=== PATIENT | female | born 2000 | race Caucasian/White ===

== ENCOUNTER 2019-03-19 21:59 | Emergency (ER) | payer OTHER ==
[~2019-03-19] VITALS: Ht 162.6 cm; Wt 114.0 kg
[2019-03-19 22:16] VITALS: Ht 162.6 cm; Wt 114.0 kg
[2019-03-20] MEDS ORDERED: NAPR-985 PO (00:14)
[2019-03-20 01:13] VITALS: BP 137/83; PULSE 77; RESP 16
--- NOTE | 2019-03-20 04:50 | ERD ---
ER Documentation Chief Complaint Chief Complaint R shoulder & chest wall pains on/off x 3 days HPI 18-year-old female presenting to the emergency department complaining of pain to the right scapular region with radiation to the right chest for the past 3 days. Pain is completely resolved at this time. Pain is sharp and intermittent. Pain is rated moderate in severity. She took [id number] medication with some relief. She denies any shortness of breath, abdominal pain, nausea, vomiting, diarrhea, or other symptoms at this time. ROS All systems reviewed and are negative except as per history of present illness. Medications Home Meds Active Scripts Naproxen* (Naprosyn*) 500 Mg Tablet, 500 MG PO BID PRN for PAIN AND/OR INFLAMMATION, #30 TAB Prov:EKATERINA MCCARTNEY PA-C 03/20/19 Allergies Allergies: Coded Allergies: No Known Allergy (Unverified , 07/25/11) PMhx/Soc Medical and Surgical Hx: pt denies Medical Hx, pt denies Surgical Hx History of Surgery: No Anesthesia Reaction: No Hx Neurological Disorder: No Hx Respiratory Disorders: No Hx Cardiac Disorders: No Hx Psychiatric Problems: No Hx Miscellaneous Medical Probl: No Hx Alcohol Use: No Hx Substance Use: No Hx Tobacco Use: No Smoking Status: Never smoker FmHx Family History: No diabetes Physical Exam Vitals Vital Signs Date Temp Pulse Resp B/P (MAP) Pulse Ox O2 O2 Flow FiO2 Time Delivery Rate 03/20/19 97.7 77 16 137/83 94 Room Air 01:13 (101) 03/19/19 98.0 78 18 150/95 96 22:16 (113) Physical Exam Const: No acute distress Head: Atraumatic Eyes: Normal Conjunctiva ENT: Normal External Ears, Nose and Mouth. Neck: Full range of motion. No meningismus. Resp: Clear to auscultation bilaterally Cardio: Regular rate and rhythm, no murmurs. Reproducible right-sided chest wall tenderness on palpation. Abd: Soft, non tender, non distended. Normal bowel sounds Skin: No petechiae or rashes Back: No midline or flank tenderness Ext: No cyanosis, or edema Neur: Awake and alert Psych: Normal Mood and Affect Results [address] [address] Radiology Main Line: [phone] DIAGNOSTIC IMAGING REPORT Patient: RANJIT SCHMID : 2000 Age: 18 Sex: F MR #: [id number] [id number] DOS: 03/19/19 0000 Ordering MD: EKATERINA MCCARTNEY PA-C Location: [facility] Room/Bed: PROCEDURE: XR Chest. CLINICAL INDICATION: Chest pain, right side, with inspiration. TECHNIQUE: Portable AP upright view of the chest was obtained. COMPARISON: None. FINDINGS: The cardiomediastinal silhouette is within normal limits. The lungs are clear. There is no evidence for pleural effusion, pneumothorax or pulmonary vascular congestion. The osseous structures are intact with no evidence for acute abnormality. RPTAT:HJJR IMPRESSION: No evidence for acute intrathoracic pathology. Physician Mary Date Time Electronically viewed and signed by Physician Mary on 03/20/2019 00:06 JR/ CC: EKATERINA MCCARTNEY PA-C [id number] Procedures/MDM 18-year-old female presents to the emergency department with signs and symptoms most consistent with acute chest wall pain. X-rays negative for any acute abnormalities per radiology. Patient's thoracic symptoms have stabilized while in the department and are stable for outpatient follow up. Exam and work up not consistent w/ ischemia, arrhythmia, PE or dissection. Departure Diagnosis: Primary Impression: Chest wall pain Condition: Fair Patient Instructions: Chest Wall Pain, Costochondritis Additional Instructions: Call your primary care doctor TOMORROW for an appointment during the next 1-2 days.See the doctor sooner or return here if your condition worsens before your appointment time. EKATERINA MCCARTNEY PA-C Mar 20, 2019 04:50
== END 2019-03-20 01:01 | disposition home or self-care (01) ==
LOC: FTE 21:59
DX: R07.89 Other chest pain (principal)
CPT/HCPCS: 71045; Z7502